=== PATIENT | female | born 1950 | race Caucasian/White ===

== ENCOUNTER 2017-06-16 14:40 | Inpatient (IN) | payer OTHER ==
[~2017-06-16] VITALS: Ht 157.5 cm; Wt 81.6 kg
[~2017-06-16 14:40] MED LIST: ADVAIR 250/501 DISK IH; ADVAIR HFA120 INHALA IH; AMLODIPINE BESY10 MG PO; ASPIR-TRIN325 M1 PO; AVELOX400 MG PO; CEFDINIR300 MG PO; CLONAZEPAM1 MG PO; COMBIVENT RESPIM4 GM IH; CRESTOR40 MG PO; Combivent IH; DOXEPIN HCL10 MG PO; ECOTRIN325 MG PO; EFFEXOR XR150 MG PO; EFFEXOR75 MG PO; GABAPENTIN300 MG PO; HYDROCODON-ACE1 EAC1 PO; KEPPRA500 MG PO; KEPPRA750 MG PO; LAMICTAL150 MG PO; LYRICA75 MG PO; Levaquin PO; METFORMIN HCL750 MG PO; Mysoline PO; NEURONTIN300 MG PO; NICOTINE PATCH1 EAC2 TD; NITROSTAT0.4 MG SL; PIOGLITAZONE HC15 MG PO; PIOGLITAZONE-M1 EACH PO; PLAVIX75 MG PO; PREDNISONE10 MG PO; PRIMIDONE250 MG PO; PRIMIDONE50 MG PO; Remove Nicotine Patch TD; SEROQUEL XR150 MG PO; SEROQUEL XR50 MG PO; SEROQUEL50 MG PO; SPIRIVA1 INHALATI IH; TRAMADOL HCL50 MG PO; Tamiflu PO; Vicodin,Lortab 5/500 PO; ZYVOX600 MG PO
[2017-06-16 15:32] LABS: HEMATOCRIT 46.4 % (36.0-46.0); HEMOGLOBIN 15.2 G/DL (11.9-15.5); MCH 28.5 PG (29.0-34.0); MCHC 32.8 G/DL (30.0-36.0); MCV 86.9 FL (83-99); PLATELET COUNT 188 K/uL (156-360); RBC DIS.WIDTH-CV 13.4 % (11.8-14.6); RBC DIS.WIDTH-SD 42.6 % (39-53); RED BLOOD COUNT 5.34 M/uL (3.80-5.20); WHITE BLOOD COUNT 8.3 K/uL (4.1-10.2)
[2017-06-16 15:39] LABS: ALBUMIN 3.9 g/dL (3.2-4.8); CHLORIDE 107 mEq/L (99-109); POTASSIUM 4.5 mEq/L (3.7-5.4); SODIUM 140 mEq/L (136-147)
[2017-06-16 15:41] LABS: GLUCOSE 147 mg/dL (70-99); TOTAL PROTEIN 7.5 g/dL (6.4-8.3)
[2017-06-16 15:43] LABS: TOTAL BILIRUBIN 0.5 mg/dL (0.0-1.0)
[2017-06-16 15:45] LABS: ALKALINE PHOSPHATASE 87 IU/L (3-129); GFR ESTIMATE (CALCULATED) 59 mL/min/
[2017-06-16 15:46] LABS: UREA NITROGEN (BUN) 11 mg/dL (9-23)
[2017-06-16 15:47] LABS: AST (GOT) 32 IU/L (2-34)
[2017-06-16 15:48] LABS: ALT (GPT) 30 IU/L (3-49); LIPASE 51 U/L (1.0-51.0)
[2017-06-16] MEDS ORDERED: ADVAIR 100/501 DISK IH (17:53)
[2017-06-16] MEDS ORDERED: LISINOPRIL20 MG PO (17:54)
[2017-06-16] MEDS ORDERED: MIRTAZAPINE45 MG PO (17:54)
[2017-06-16] MEDS ORDERED: SERTRALINE HCL50 MG PO (17:54)
[2017-06-16] MEDS ORDERED: CRESTOR40 MG PO (17:55)
[2017-06-16] MEDS ORDERED: GABAPENTIN600 MG PO (17:55)
[2017-06-16 18:55] LABS: TROP-I INTERPRETATION NEGATIVE; TROPONIN-I 0.01 ng/mL (0.0-0.30)
[2017-06-16 20:51] LABS: INTER. NORMALIZED RATIO 1.1
[2017-06-16 20:54] LABS: PTT 36.3 SEC (25-37)
[2017-06-17] VITALS (11 sets, daily range): BP systolic 72–165; BP diastolic 44–87
[2017-06-17 00:41] LABS: TROP-I INTERPRETATION NEGATIVE; TROPONIN-I < 0.01 ng/mL (0.0-0.30)
[2017-06-17 02:50] LABS: HEMATOCRIT 44.3 % (36.0-46.0); HEMOGLOBIN 14.2 G/DL (11.9-15.5); MCH 28.5 PG (29.0-34.0); MCHC 32.1 G/DL (30.0-36.0); MCV 88.8 FL (83-99); PLATELET COUNT 164 K/uL (156-360); RBC DIS.WIDTH-CV 13.6 % (11.8-14.6); RBC DIS.WIDTH-SD 44.6 % (39-53); RED BLOOD COUNT 4.99 M/uL (3.80-5.20); WHITE BLOOD COUNT 7.1 K/uL (4.1-10.2)
[2017-06-17 02:57] LABS: HDL CHOLESTEROL 26 MG/DL (Desirable>=50); LDL CHOLESTEROL 108 mg/dL (Desirable<100); NON-HDL CHOLESTEROL 140 mg/dL (Desirable<160); TOTAL CHOLESTEROL 166 mg/dL (Desirable<200); TRIGLYCERIDES 161 MG/DL (Normal: <150)
[2017-06-17 03:11] LABS: TROP-I INTERPRETATION NEGATIVE; TROPONIN-I 0.01 ng/mL (0.0-0.30)
[2017-06-17 09:00] LABS: MCH 28.5 PG (29.0-34.0); MCHC 31.3 G/DL (30.0-36.0); MCV 91.3 FL (83-99); PLATELET COUNT 189 K/uL (156-360); RBC DIS.WIDTH-CV 13.9 % (11.8-14.6); RBC DIS.WIDTH-SD 46.7 % (39-53); RED BLOOD COUNT 5.26 M/uL (3.80-5.20)
[2017-06-17 09:31] LABS: CHLORIDE 105 MEQ/L (99-109); CREATININE 1.1 MG/DL (0.6-1.3); GFR ESTIMATE (CALCULATED) 53 mL/min/; GLUCOSE 139 mg/dL (70-99); POTASSIUM 4.6 MEQ/L (3.7-5.4); SODIUM 139 MEQ/L (136-147); UREA NITROGEN (BUN) 9 mg/dL (9-23)
[2017-06-17 09:48] LABS: TROP-I INTERPRETATION NEGATIVE; TROPONIN-I < 0.01 ng/mL (0.0-0.30)
[2017-06-17 14:06] LABS: HEMOGLOBIN 14.3 G/DL (11.9-15.5); MCV 89.7 FL (83-99)
[2017-06-17 14:31] LABS: TROP-I INTERPRETATION NEGATIVE; TROPONIN-I 0.01 ng/mL (0.0-0.30)
[2017-06-17 22:03] LABS: HEMATOCRIT 43.5 % (36.0-46.0); MCV 89.3 FL (83-99)
[2017-06-18 03:59] VITALS: BP 157/65
[2017-06-18 05:51] LABS: HEMATOCRIT 45.1 % (36.0-46.0); HEMOGLOBIN 14.4 G/DL (11.9-15.5); MCH 28.3 PG (29.0-34.0); MCHC 31.9 G/DL (30.0-36.0); MCV 88.8 FL (83-99); PLATELET COUNT 167 K/uL (156-360); RBC DIS.WIDTH-CV 13.6 % (11.8-14.6); RBC DIS.WIDTH-SD 44.4 % (39-53); RED BLOOD COUNT 5.08 M/uL (3.80-5.20); WHITE BLOOD COUNT 6.6 K/uL (4.1-10.2)
[2017-06-18 06:28] LABS: CHLORIDE 103 MEQ/L (99-109); CREATININE 1.1 MG/DL (0.6-1.3); GFR ESTIMATE (CALCULATED) 53 mL/min/; GLUCOSE 136 mg/dL (70-99); POTASSIUM 4.4 MEQ/L (3.7-5.4); SODIUM 139 MEQ/L (136-147); UREA NITROGEN (BUN) 9 mg/dL (9-23)
[2017-06-18 10:15] VITALS: BP 129/60
[2017-06-18 12:39] VITALS: BP 120/59
[2017-06-18 14:00] LABS: HEMOGLOBIN 14.6 G/DL (11.9-15.5)
[2017-06-18 16:45] VITALS: BP 121/60
[2017-06-18 19:50] VITALS: BP 112/65
[2017-06-18 22:31] LABS: HEMATOCRIT 41.6 % (36.0-46.0); HEMOGLOBIN 13.5 G/DL (11.9-15.5); MCV 87.8 FL (83-99)
[2017-06-19 03:42] VITALS: BP 117/65
[2017-06-19 06:17] LABS: BASOPHIL (%) 0.5 % (0-1); EOSINOPHIL (%) 1.5 % (0-5); EOSINOPHIL COUNT 0.1 K/uL (0-0.3); HEMATOCRIT 42.7 % (36.0-46.0); HEMOGLOBIN 13.8 G/DL (11.9-15.5); IMMATURE GRANULOCYTE (%) 0.4 % (0.0-0.7); LYMPHOCYTE (%) 21.8 % (15-42); LYMPHOCYTE COUNT 1.8 K/uL (1.0-2.8); MCH 28.7 PG (29.0-34.0); MCHC 32.3 G/DL (30.0-36.0); MCV 88.8 FL (83-99); MONOCYTE (%) 5.8 % (3-12); MONOCYTE COUNT 0.5 K/uL (0-0.8); NEUTROPHIL COUNT 5.7 K/uL (1.8-6.4); PLATELET COUNT 168 K/uL (156-360); RBC DIS.WIDTH-CV 13.5 % (11.8-14.6); RBC DIS.WIDTH-SD 44.6 % (39-53); RED BLOOD COUNT 4.81 M/uL (3.80-5.20); WHITE BLOOD COUNT 8.1 K/uL (4.1-10.2)
[2017-06-19 06:32] LABS: CHLORIDE 102 MEQ/L (99-109); CREATININE 0.9 MG/DL (0.6-1.3); GFR ESTIMATE (CALCULATED) > 59 mL/min/; GLUCOSE 151 mg/dL (70-99); MAGNESIUM 2.2 mg/dl (1.3-2.7); POTASSIUM 4.7 MEQ/L (3.7-5.4); SODIUM 137 MEQ/L (136-147); UREA NITROGEN (BUN) 12 mg/dL (9-23)
[2017-06-19 09:05] VITALS: BP 122/60
[2017-06-19 13:45] VITALS: BP 148/68
[2017-06-19 14:14] LABS: HEMATOCRIT 45.4 % (36.0-46.0); HEMOGLOBIN 14.3 G/DL (11.9-15.5); MCV 87.8 FL (83-99)
[2017-06-19 14:56] VITALS: BP 138/63
[2017-06-19 19:20] VITALS: BP 150/68
[2017-06-19 22:02] LABS: HEMATOCRIT 45.8 % (36.0-46.0); HEMOGLOBIN 14.5 G/DL (11.9-15.5); MCV 88.6 FL (83-99)
[2017-06-19 23:41] VITALS: BP 99/50
[2017-06-20 04:08] VITALS: BP 133/61
[2017-06-20 05:34] LABS: BASOPHIL (%) 0.7 % (0-1); EOSINOPHIL (%) 5.3 % (0-5); EOSINOPHIL COUNT 0.3 K/uL (0-0.3); HEMATOCRIT 43.4 % (36.0-46.0); HEMOGLOBIN 13.8 G/DL (11.9-15.5); IMMATURE GRANULOCYTE (%) 0.3 % (0.0-0.7); LYMPHOCYTE (%) 32.8 % (15-42); MCH 28.3 PG (29.0-34.0); MCHC 31.8 G/DL (30.0-36.0); MCV 89.1 FL (83-99); MONOCYTE COUNT 0.5 K/uL (0-0.8); NEUTROPHIL (%) 51.9 % (45-76); NEUTROPHIL COUNT 3.1 K/uL (1.8-6.4); PLATELET COUNT 168 K/uL (156-360); RBC DIS.WIDTH-CV 13.6 % (11.8-14.6); RBC DIS.WIDTH-SD 44.4 % (39-53); RED BLOOD COUNT 4.87 M/uL (3.80-5.20)
[2017-06-20 05:36] LABS: INTER. NORMALIZED RATIO 1.2
[2017-06-20 06:13] LABS: ALBUMIN 3.7 G/DL (3.2-4.8); CHLORIDE 107 MEQ/L (99-109); GFR ESTIMATE (CALCULATED) 59 mL/min/; GLUCOSE 122 mg/dL (70-99); PHOSPHORUS 3.1 mg/dL (2.5-4.9); POTASSIUM 4.5 MEQ/L (3.7-5.4); SODIUM 143 MEQ/L (136-147); UREA NITROGEN (BUN) 9 mg/dL (9-23)
[2017-06-20 07:23] VITALS: BP 143/66
[2017-06-20 08:00] VITALS: BP 151/96
[2017-06-20 11:25] VITALS: BP 134/79
[2017-06-20 15:50] VITALS: BP 138/65
[2017-06-20 19:20] VITALS: BP 158/76
[2017-06-21 00:15] VITALS: BP 135/68
[2017-06-21 04:12] VITALS: BP 148/69
[2017-06-21 05:51] LABS: BASOPHIL (%) 0.8 % (0-1); EOSINOPHIL (%) 5.8 % (0-5); EOSINOPHIL COUNT 0.3 K/uL (0-0.3); HEMATOCRIT 42.9 % (36.0-46.0); HEMOGLOBIN 13.5 G/DL (11.9-15.5); IMMATURE GRANULOCYTE (%) 0.2 % (0.0-0.7); LYMPHOCYTE (%) 32.5 % (15-42); LYMPHOCYTE COUNT 1.6 K/uL (1.0-2.8); MCHC 31.5 G/DL (30.0-36.0); MCV 88.8 FL (83-99); MONOCYTE (%) 8.2 % (3-12); MONOCYTE COUNT 0.4 K/uL (0-0.8); NEUTROPHIL (%) 52.5 % (45-76); NEUTROPHIL COUNT 2.6 K/uL (1.8-6.4); PLATELET COUNT 174 K/uL (156-360); RBC DIS.WIDTH-CV 13.3 % (11.8-14.6); RBC DIS.WIDTH-SD 43.3 % (39-53); RED BLOOD COUNT 4.83 M/uL (3.80-5.20)
[2017-06-21 06:19] LABS: CHLORIDE 107 MEQ/L (99-109); GFR ESTIMATE (CALCULATED) 59 mL/min/; GLUCOSE 115 mg/dL (70-99); POTASSIUM 4.7 MEQ/L (3.7-5.4); SODIUM 142 MEQ/L (136-147); UREA NITROGEN (BUN) 6 mg/dL (9-23)
[2017-06-21 07:58] VITALS: BP 167/99
[2017-06-21 16:30] VITALS: BP 148/69
[2017-06-21 19:58] VITALS: BP 158/80
[2017-06-22 00:11] VITALS: BP 164/68
[2017-06-22 04:44] VITALS: BP 128/59
[2017-06-22 07:20] LABS: BASOPHIL (%) 0.9 % (0-1); BASOPHIL COUNT 0.1 K/uL (0-0.1); EOSINOPHIL (%) 5.7 % (0-5); EOSINOPHIL COUNT 0.3 K/uL (0-0.3); HEMATOCRIT 42.7 % (36.0-46.0); HEMOGLOBIN 13.5 G/DL (11.9-15.5); IMMATURE GRANULOCYTE (%) 0.4 % (0.0-0.7); LYMPHOCYTE (%) 32.5 % (15-42); LYMPHOCYTE COUNT 1.8 K/uL (1.0-2.8); MCHC 31.6 G/DL (30.0-36.0); MCV 88.4 FL (83-99); MONOCYTE (%) 8.6 % (3-12); MONOCYTE COUNT 0.5 K/uL (0-0.8); NEUTROPHIL (%) 51.9 % (45-76); NEUTROPHIL COUNT 2.9 K/uL (1.8-6.4); PLATELET COUNT 193 K/uL (156-360); RBC DIS.WIDTH-CV 13.2 % (11.8-14.6); RBC DIS.WIDTH-SD 43.1 % (39-53); RED BLOOD COUNT 4.83 M/uL (3.80-5.20); WHITE BLOOD COUNT 5.5 K/uL (4.1-10.2)
[2017-06-22 07:40] LABS: ALBUMIN 3.7 G/DL (3.2-4.8); ALKALINE PHOSPHATASE 71 IU/L (3-129); ALT (GPT) 7 IU/L (3-49); AST (GOT) 20 IU/L (2-34); CHLORIDE 106 MEQ/L (99-109); CREATININE 1.1 MG/DL (0.6-1.3); GFR ESTIMATE (CALCULATED) 53 mL/min/; GLUCOSE 126 mg/dL (70-99); POTASSIUM 4.6 MEQ/L (3.7-5.4); SODIUM 143 MEQ/L (136-147); TOTAL BILIRUBIN 0.5 MG/DL (0.0-1.0); TOTAL PROTEIN 6.7 G/DL (6.4-8.3); UREA NITROGEN (BUN) 9 mg/dL (9-23)
[2017-06-22 08:12] VITALS: BP 128/64
[2017-06-22] MEDS ORDERED: LEVAQUIN750 MG PO (08:41)
[2017-06-22] MEDS ORDERED: VIGAMOX 0.60 DROP/3 RIGHT EYE (08:41)
[2017-06-22] MEDS ORDERED: PREDNISOLONE AC15 ML RIGHT EYE (08:41)
[2017-06-22] MEDS ORDERED: LOPRESSOR25 MG PO (08:41)
[2017-06-22 11:31] VITALS: BP 124/68
== END 2017-06-22 14:15 | disposition home or self-care (01) | DRG 311 ==
LOC: EME 14:40 → EDOF 18:30 → ENRESERV 18:30 → EDOF 18:30 → ENRESERV 18:52 → 4EAST 18:53 → EDOF 18:53 → ENRESERV 18:57 → 4EAST 06-17 01:57 → ENRESERV 06-17 17:54 → 4SOUTH 06-17 21:39 → ENRESERV 06-17 23:12 → 4EAST 06-17 23:41 → ENRESERV 06-21 15:56 → 4SOUTH 06-21 19:37
PROVIDERS: Emergency Medicine; Hospitalist; Internal Medicine; Internal Medicine Gastroenterology; Student in an Organized Health Care Education/Training Program
PROC: 0DBP8ZX Excision of Rectum, Via Natural or Artificial Opening Endoscopic, Diagnostic (ICD-10-PCS; principal; 2017-06-20)
DX: I20.0 Unstable angina (principal); I11.0 Hypertensive heart disease with heart failure; I25.110 Atherosclerotic heart disease of native coronary artery with unstable angina pectoris; G40.909 Epilepsy, unspecified, not intractable, without status epilepticus; F43.10 Post-traumatic stress disorder, unspecified; E78.00 Pure hypercholesterolemia, unspecified; F32.9 Major depressive disorder, single episode, unspecified; K21.9 Gastro-esophageal reflux disease without esophagitis; E11.9 Type 2 diabetes mellitus without complications; I50.9 Heart failure, unspecified; K92.1 Melena; I95.9 Hypotension, unspecified; K63.5 Polyp of colon; R79.1 Abnormal coagulation profile; H60.11 Cellulitis of right external ear; R19.4 Change in bowel habit; J43.9 Emphysema, unspecified; H10.021 Other mucopurulent conjunctivitis, right eye; J44.9 Chronic obstructive pulmonary disease, unspecified; R00.8 Other abnormalities of heart beat; H60.91 Unspecified otitis externa, right ear; J96.11 Chronic respiratory failure with hypoxia; K59.00 Constipation, unspecified; L03.213 Periorbital cellulitis; F32.3 Major depressive disorder, single episode, severe with psychotic features; Z82.49 Family history of ischemic heart disease and other diseases of the circulatory system; Z87.891 Personal history of nicotine dependence; Z79.82 Long term (current) use of aspirin; Z98.61 Coronary angioplasty status; Z99.81 Dependence on supplemental oxygen; I25.2 Old myocardial infarction; Z79.02 Long term (current) use of antithrombotics/antiplatelets; E66.9 Obesity, unspecified; Z68.35 Body mass index [BMI] 35.0-35.9, adult
CPT/HCPCS: 70486; 71045; 71250; 74177; 78582; 80048; 80053; 80061; 80069; 82948; 83605; 83690; 83735; 84484; 85014; 85018; 85025; 85027; 85379; 85610; 85730; 86850; 86900; 86901; 87040; 87070; 87077; 87186; 87641; 88305; 93005; 93306; 94640; 94640 76; 94760; 94799; 99202; 99281; 99285; A9539; A9540; C9113; J0690; J0692; J1815; J2270; J2405; J7030; J7040; Q0177

== ENCOUNTER → 2017-08-27 | Outpatient (CLI) | payer OTHER ==
[~2017-08-27] VITALS: Ht 157.5 cm; Wt 72.6 kg
[~2017-08-27] MED LIST changes: +ADVAIR 100/501 DISK IH; +GABAPENTIN600 MG PO; +LEVAQUIN750 MG PO; +LISINOPRIL20 MG PO; +LOPRESSOR25 MG PO; +METFORMIN HCL500 MG PO; +MIRTAZAPINE45 MG PO; +PREDNISOLONE AC15 ML RIGHT EYE; +SERTRALINE HCL50 MG PO; +VIGAMOX 0.60 DROP/3 RIGHT EYE
== END | disposition home or self-care (01) ==
LOC: AMB 13:25
PROVIDERS: Internal Medicine Gastroenterology
DX: D12.7 Benign neoplasm of rectosigmoid junction (principal); D12.5 Benign neoplasm of sigmoid colon; D12.3 Benign neoplasm of transverse colon; D12.2 Benign neoplasm of ascending colon; J44.9 Chronic obstructive pulmonary disease, unspecified; I10 Essential (primary) hypertension; G40.909 Epilepsy, unspecified, not intractable, without status epilepticus; I25.10 Atherosclerotic heart disease of native coronary artery without angina pectoris; E11.9 Type 2 diabetes mellitus without complications; R94.31 Abnormal electrocardiogram [ECG] [EKG]; E78.5 Hyperlipidemia, unspecified; E66.9 Obesity, unspecified; Z68.29 Body mass index [BMI] 29.0-29.9, adult; Z79.02 Long term (current) use of antithrombotics/antiplatelets; Z87.891 Personal history of nicotine dependence; Z79.84 Long term (current) use of oral hypoglycemic drugs; Z95.5 Presence of coronary angioplasty implant and graft
CPT/HCPCS: 82948; 88305